=== PATIENT | female | born 1940 | race African-American/Black ===

== ENCOUNTER 2018-11-30 08:32 | Day surgery (SDC) | payer OTHER | END 2018-11-30 11:42 | disposition home or self-care (01) | LOC: FASU-ENDO 08:32 ==

== ENCOUNTER 2022-02-28 07:40 | Day surgery (SDC) | payer OTHER ==
[2022-02-26 12:00] VITALS: BMI 33.5
[2022-02-28] MEDS ORDERED: PROPOFOL 120 ML ONE (07:56)
[2022-02-28 08:34] VITALS: TEMP 97.8
[2022-02-28 09:17] VITALS: BP 114/65; PULSE 75; RESP 18
== END 2022-02-28 09:19 | disposition home or self-care (01) ==
LOC: FASU-ENDO 07:40
PROVIDERS: ATTEND Internal Medicine Gastroenterology
PROC: 0DBL8ZX Excision of Transverse Colon, Via Natural or Artificial Opening Endoscopic, Diagnostic (ICD-10-PCS; principal; 2022-02-28 08:17)
DX: Z12.11 Encounter for screening for malignant neoplasm of colon (principal); Z86.010 Personal history of colon polyps; Z80.0 Family history of malignant neoplasm of digestive organs; K57.30 Diverticulosis of large intestine without perforation or abscess without bleeding; K63.89 Other specified diseases of intestine
CPT/HCPCS: 82962; 88305-TC